=== PATIENT | male | born 1930 | race Caucasian/White ===

== ENCOUNTER 2016-10-24 05:22 | Day surgery (SDC) | payer OTHER ==
[~2016-10-24] VITALS: Ht 165.1 cm; Wt 104.9 kg
--- NOTE | ~2016-10-24 | O ---
[address] [address] OPERATIVE REPORT Name: KENDALL VORA Room #: 150-2 [facility]..#: [id number] Admission: 10/24/16 Attend Phys: Soy Asif MD Discharge: Date of : 32 Report #: [id number] THIS REPORT FOR: //name// CC: Vanita Johnson MD, Dr. Neal Luis MD [facility] Deonna Asif DATE OF SURGERY: 10/24/2016. SURGEON: Soy Asif MD. CASING FLUSHER: None. PREOPERATIVE DIAGNOSIS: Bilateral upper lid dermatochalasia with superior visual field defect. POSTOPERATIVE DIAGNOSIS: Bilateral upper lid dermatochalasia with superior visual field defect. OPERATION PERFORMED: Bilateral upper lid functional blepharoplasty. ANESTHESIA: Local with IV sedation. COMPLICATIONS: None. INDICATIONS FOR SURGERY: This patient has acquired upper lid dermatochalasia with superior visual field loss both eyes because of excessive upper lid tissues to include skin and fat. Visual field testing demonstrates dense superior visual defects. Retesting with the upper lid elevated shows an improvement in visual field loss of over 30% and in excess of 12 degrees. The current procedures are undertaken in order to improve the patient's visual function. Informed consent was obtained to include but not limited to the loss of vision, bleeding, infection, scarring, failure to improve the problem and need for further surgery. [address] [address] OPERATIVE REPORT Name: KENDALL VORA [place] Room #: [facility]#: [id number] Admission: 10/24/16 Attend Phys: Soy Asif MD Discharge: Date of : 32 Report #: [id number] DESCRIPTION OF OPERATION: The patient was taken to the operating room, where 2% Xylocaine with epinephrine mixed with equal parts of 0.75% Marcaine with Wydase was administered transcutaneously to each upper lid. The patient was then prepped and draped in the usual sterile fashion and a skin-marking pen was then utilized to outline an upper lid crease that was symmetrical on each side. Graefe forceps were then used to quantitate the redundant upper lid skin and it was similarly outlined. The incisions were then made with Dariana scissors and a skin-muscle flap removed from each side with high-temp cautery. Hemostasis was achieved with the monopolar cautery as it was throughout the case. The orbital septum was then identified and the central and medial fat pads were inspected. The redundant soft tissue was then sculpted with the monopolar cautery. The upper lid crease was then reformed with tightening of the pretarsal orbicularis muscle. The upper lid crease was then further reformed with multiple interrupted 6-0 chromic sutures. The skin was then closed with a running 6-0 plain gut suture. The wound was then cleaned and dressed with ophthalmic antibiotic ointment and a nonstick dressing. The patient was transported to the recovery area, where cold compresses were applied, having tolerated the procedure well with no anesthetic or operative complications being noted. By: [id number] Soy Asif MD /nt
[~2016-10-24 05:22] MED LIST: ACTOS; ACTOS 45 MG45 M1 PO; ASPIRIN EC81 M1 PO; AZOPT OPHTH1 %/10 M1 OPHTHALMIC; B COMPLEX-VITA1 EACH; BENICAR HCT 401 EAC1 PO; BENICAR40 MG PO; BRIMONIDINE TAR1 BO1 OPHTHALMIC; COSOPT EYE DROPS5 ML OPHTHALMIC; CRESTOR40 MG PO; DIABETA; DOXYCYCLINE 10100 MG PO; FISH OIL 1,0001 EAC5 PO; FISH OIL 1,001000 M2 PO; FLONASE 0.05%50 MCG NS; GLUCOTROL5 MG PO; GLYBURIDE 5 MG T5 M1 PO; HYDROCODON-ACE1 EACH PO; INDOCIN SR75 MG PO; JANUVIA100 MG PO; KETOROLAC 0.5% E5 ML OPHTHALMIC; LEVAQUIN 500 M500 MG PO; LEVOTHYROXIN0.125 M1 PO; LEVOTHYROXIN0.137 M1 PO; LIPITOR40 MG PO; LISINOPRIL40 MG PO; LOSARTAN-HCTZ1 EAC1 PO; MECLIZINE HCL12.5 MG PO; NAPROSYN500 MG PO; NEURONTIN 300300 M1 PO; NEURONTIN 400400 M1 PO; NO HOME MEDS; NORCO 5-325 TA1 EACH PO; PANTOPRAZOLE SO40 M1 PO; TRAVATAN 0.004%5 ML OPHTHALMIC; VIAGRA50 MG; VIAGRA50 MG PO; VITAMIN D-32000 UNIT PO; XALATAN2.5 ML OPHTHALMIC; ZOFRAN ODT4 MG PO; ZPAK PO; [UNRECOGNIZED DRUG - REMARK]
[2016-10-24 07:00] VITALS: BP 112/55
== END 2016-10-24 08:52 | disposition home or self-care (01) ==
LOC: TBA 05:22 → OR 05:22 → TBA 05:23 → OR 08:52
DX: H02.834 Dermatochalasis of left upper eyelid (principal); H02.831 Dermatochalasis of right upper eyelid; E78.00 Pure hypercholesterolemia, unspecified; I10 Essential (primary) hypertension; G47.33 Obstructive sleep apnea (adult) (pediatric); K21.9 Gastro-esophageal reflux disease without esophagitis; E11.9 Type 2 diabetes mellitus without complications; E03.9 Hypothyroidism, unspecified; Z86.73 Personal history of transient ischemic attack (TIA), and cerebral infarction without residual deficits; Z85.46 Personal history of malignant neoplasm of prostate; Z87.891 Personal history of nicotine dependence
CPT/HCPCS: 50010; 50101; 50386; 50398; 51606; 51636; 56531; 62110; 62850; 70005

== ENCOUNTER → 2016-12-18 | Outpatient (CLI) | payer OTHER | LOC: HYPER 07:06 | DX: L03.116 Cellulitis of left lower limb (principal); E11.49 Type 2 diabetes mellitus with other diabetic neurological complication; I10 Essential (primary) hypertension; N25.81 Secondary hyperparathyroidism of renal origin; R60.0 Localized edema; M19.90 Unspecified osteoarthritis, unspecified site; E78.5 Hyperlipidemia, unspecified; R60.9 Edema, unspecified; E11.36 Type 2 diabetes mellitus with diabetic cataract; Z85.820 Personal history of malignant melanoma of skin; Z87.891 Personal history of nicotine dependence ==

== ENCOUNTER → 2017-01-02 | Outpatient (CLI) | payer OTHER | LOC: HYPER 07:12 | DX: S61.409A Unspecified open wound of unspecified hand, initial encounter (principal); L03.116 Cellulitis of left lower limb; E11.49 Type 2 diabetes mellitus with other diabetic neurological complication; I10 Essential (primary) hypertension; N25.81 Secondary hyperparathyroidism of renal origin; R60.0 Localized edema; M19.90 Unspecified osteoarthritis, unspecified site; E78.5 Hyperlipidemia, unspecified; E11.36 Type 2 diabetes mellitus with diabetic cataract; Z87.891 Personal history of nicotine dependence; Z85.820 Personal history of malignant melanoma of skin; X58.XXXA Exposure to other specified factors, initial encounter; Y93.89 Activity, other specified; Y92.89 Other specified places as the place of occurrence of the external cause; Y99.8 Other external cause status ==

== ENCOUNTER 2017-08-05 10:03 | Emergency (ER) | payer OTHER ==
[2017-08-05 11:22] VITALS: BP 124/64
== END 2017-08-05 18:13 | disposition home or self-care (01) ==
LOC: ER 10:03
DX: Z53.21 Procedure and treatment not carried out due to patient leaving prior to being seen by health care provider (principal)

== ENCOUNTER → 2018-08-27 | Outpatient (CLI) | payer OTHER | LOC: RAD 16:58 | DX: R06.02 Shortness of breath (principal) ==

== ENCOUNTER 2019-04-11 11:07 | Emergency (ER) | payer OTHER ==
[~2019-04-11] VITALS: Ht 175.3 cm; Wt 103.9 kg
[2019-04-11 13:29] VITALS: BP 148/44
== END 2019-04-11 14:01 | disposition home or self-care (01) ==
LOC: ER 11:07
DX: S13.4XXA Sprain of ligaments of cervical spine, initial encounter (principal); I10 Essential (primary) hypertension; E11.9 Type 2 diabetes mellitus without complications; G47.30 Sleep apnea, unspecified; E03.9 Hypothyroidism, unspecified; E78.00 Pure hypercholesterolemia, unspecified; K21.9 Gastro-esophageal reflux disease without esophagitis; Z85.828 Personal history of other malignant neoplasm of skin; Z90.89 Acquired absence of other organs; Z96.653 Presence of artificial knee joint, bilateral; Z88.2 Allergy status to sulfonamides; Z88.1 Allergy status to other antibiotic agents; Z91.048 Other nonmedicinal substance allergy status; X50.0XXA Overexertion from strenuous movement or load, initial encounter; Y92.89 Other specified places as the place of occurrence of the external cause; Y93.89 Activity, other specified; Y99.8 Other external cause status

== ENCOUNTER → 2019-11-26 | Outpatient (CLI) | payer OTHER | LOC: SJCVC 14:22 | DX: I35.0 Nonrheumatic aortic (valve) stenosis (principal); I87.2 Venous insufficiency (chronic) (peripheral); R01.1 Cardiac murmur, unspecified; E11.9 Type 2 diabetes mellitus without complications; I26.99 Other pulmonary embolism without acute cor pulmonale; D68.59 Other primary thrombophilia; I65.23 Occlusion and stenosis of bilateral carotid arteries ==

== ENCOUNTER → 2020-06-08 | Outpatient (CLI) | payer OTHER | LOC: SJCVCIMAG 09:52 | PROVIDERS: ATTEND Internal Medicine Cardiovascular Disease | DX: I35.1 Nonrheumatic aortic (valve) insufficiency (principal); R94.31 Abnormal electrocardiogram [ECG] [EKG]; I65.23 Occlusion and stenosis of bilateral carotid arteries; I10 Essential (primary) hypertension; E78.00 Pure hypercholesterolemia, unspecified; E11.9 Type 2 diabetes mellitus without complications; K21.9 Gastro-esophageal reflux disease without esophagitis; G47.33 Obstructive sleep apnea (adult) (pediatric); Z79.899 Other long term (current) drug therapy; Z86.711 Personal history of pulmonary embolism; Z87.891 Personal history of nicotine dependence ==

== ENCOUNTER → 2020-10-03 | Outpatient (CLI) | payer OTHER | LOC: SJCVC 14:36 | PROVIDERS: ATTEND Internal Medicine Cardiovascular Disease | DX: R94.31 Abnormal electrocardiogram [ECG] [EKG] (principal); I44.0 Atrioventricular block, first degree; I11.9 Hypertensive heart disease without heart failure; I35.0 Nonrheumatic aortic (valve) stenosis; E78.00 Pure hypercholesterolemia, unspecified; E11.9 Type 2 diabetes mellitus without complications; I26.99 Other pulmonary embolism without acute cor pulmonale; D68.59 Other primary thrombophilia; I65.23 Occlusion and stenosis of bilateral carotid arteries; G47.30 Sleep apnea, unspecified; E66.9 Obesity, unspecified; I87.2 Venous insufficiency (chronic) (peripheral); Z68.39 Body mass index [BMI] 39.0-39.9, adult; Z79.899 Other long term (current) drug therapy; Z87.891 Personal history of nicotine dependence; Z72.89 Other problems related to lifestyle; Z88.1 Allergy status to other antibiotic agents; Z88.2 Allergy status to sulfonamides; Z88.8 Allergy status to other drugs, medicaments and biological substances ==